=== PATIENT | female | born 1995 | race Asian ===

== ENCOUNTER 2017-08-28 17:56 | Emergency (ER) | payer OTHER ==
[~2017-08-28] VITALS: Ht 162.6 cm; Wt 69.9 kg
[2017-08-28 18:05] VITALS: TEMP 98.5
[2017-08-28 18:53] VITALS: BP 128/78
== END 2017-08-28 18:59 | disposition home or self-care (01) ==
LOC: ED 17:56
PROC: 0CQ00ZZ Repair Upper Lip, Open Approach (ICD-10-PCS; principal; 2017-08-28)
DX: S01.512A Laceration without foreign body of oral cavity, initial encounter (principal); S01.511A Laceration without foreign body of lip, initial encounter; V86.59XA Driver of other special all-terrain or other off-road motor vehicle injured in nontraffic accident, initial encounter
CPT/HCPCS: 99283

== ENCOUNTER 2022-05-27 16:38 | Outpatient (CLI) | payer OTHER ==
[2022-05-27 17:17] LABS: PLATELET COUNT 487 K/uL (152-353)
== END 2022-05-27 20:47 | disposition home or self-care (01) ==
LOC: LABW 16:38
PROVIDERS: ATTEND Family Medicine
DX: R68.89 Other general symptoms and signs (principal); R53.83 Other fatigue
CPT/HCPCS: 36415; 80053; 82306; 82607; 82746; 83540; 84439; 84443; 85027